=== PATIENT | female | born 1955 | race Caucasian/White ===

== ENCOUNTER → 2020-10-29 13:55 | Outpatient (CLI) | payer MEDICARE, SELFPAY ==
[2020-10-29 16:22] LABS: COVID19 -Nasal RAPID Negative (Negative)
== END ==
PROVIDERS: PCP Nurse Practitioner Family; Visit Provider Physical Medicine & Rehabilitation
DX: Z20.822 Contact with and (suspected) exposure to COVID-19 (principal)
CPT/HCPCS: 87635; C9803

== ENCOUNTER 2020-10-30 12:27 | Outpatient (CLI) | payer MEDICARE, SELFPAY ==
[2020-10-30] VITALS (8 sets, daily range): BP systolic 112–128; BP diastolic 64–81; PULSE 72–80; RESP 15–17; TEMP 36.9; O2SAT 97–100
--- NOTE | 2020-10-30 12:30 | DI.RAD.S_ITS ---
PROCEDURE: PAIN L/SI FACET INJ/BLK 1STL INDICATIONS: SPONDYLOSIS COMPARISON: [facility], CR, XR LUMBAR SPINE 2 OR 3 VIEWS, 01/11/2020, 11:10. FINDINGS: Fluoroscopic spot filming was performed to verify placement of spinal needles at the left L4-L5 and L5-S1 level(s), as labeled on the films. Appropriate location(s) of the needle tip(s) was confirmed by injection of iodinated contrast. IMPRESSION: Intraprocedural examination within normal limits. Dictated by: Cash Low M.D. on 10/30/2020 at 13:51 Approved by: Cash Low M.D. on 10/30/2020 at 13:51
[2020-10-30] MEDS: MIDAZOLAM 5 MG/5 ML VIAL IV (13:18)
[2020-10-30] MEDS: fentaNYL 100 MCG/2 ML INJ 50 MCG IV (13:18)
[2020-10-30] MEDS: BETAMETHASONE 30 MG/5 ML MDV 12 MG INJ (13:28)
[2020-10-30] MEDS: BUPIVACAINE 0.5% (PF) VIAL 2 ML INJ (13:28)
[2020-10-30] MEDS: IOPAMIDOL 15 ML VIAL 3 ML INJ (13:28)
--- NOTE | 2020-10-30 13:41 | P.PCN_ITS ---
Date/Time/Diagnoses Date of procedure: 10/30/20 Time of procedure: 13:41 Pre-procedure diagnosis: 1. FACET ARTHROPATHY, 2. AXIAL LBP, 3. MULTILEVEL DDD Post-procedure diagnosis: same Procedure Notes Procedure: 1. FLUOROSCOPICALLY GUIDED CONTRAST CONTROLLED FACET JOINT INJECTIONS LEFT L4/5, L5/S1 Indications: Nga is referred by BOBBY Penn for treatment of Axial LBP Physician: Art Beth Total Fluoroscopy time (seconds): 9 Total sedation minutes: 13 Complications: none Procedure in detail & Post-procedure care: FINDINGS Multilevel Facet Arthropathy with Clinically significant axial LBP DESCRIPTION OF PROCEDURE Fluoroscopically guided, contrast-controlled left L4/5, L5/S1 facet joint injections. Following review of allergy and review of potential side effects and complications, including, but not necessarily limited to, infection, allergic reaction, local tissue breakdown, stroke, temporary or permanent nerve injury, paralysis, and possible , the patient indicated that the patient understood and agreed to proceed. An informed consent document was signed by the patient, witnessed by a nurse, and placed in the patient's chart. Additionally, other treatment options including medications, modalities, and physical therapy were reviewed with the patient. After review of previous anaesthesic history and IV conscious sedation the patient was deemed safe to proceed with today?s procedure with IV conscious sedation as ASA class II designation. Safety time-out was performed to confirm patient ID, procedure to be performed and site of procedure. IV sedation was accomplished with a combination of 2mg of Versed and 50mcg of Fentanyl was administered by the RN after DO order, titrated to patient comfort during the course of the procedure while the patient remained responsive to all verbal commands. In the prone position, following sterile prep and drape of the lumbar region, the posterior aspect of the left L4/5, L5/S1 facet joints were identified fluoroscopically. The skin was anesthetized via a 25-gauge 1.5-inch needle with 1% lidocaine solution into the corresponding facet joints. At this point, a 22- gauge 3.5-inch spinal needle was atraumatically introduced and advanced under fluoroscopic guidance into the corresponding facet joints. Following negative aspiration, injections of approximately 0.2-cc of Isovue 200 confirmed i nterarticular placement without vascular uptake. Radiological data, including multiple fluoroscopic views of the lumbosacral spine, reveal a spinal needle at the left L4/5, L5/S1 facet joints. Subsequent views show flow of contrast material both superiorly and inferiorly within the joint space without vascular or intrathecal uptake. At this point, a total of 0.5 cc including a mixture of 0.25cc Marcaine and 0.25cc betamethasone was injected without complication into each of the corresponding facet joints. The procedure tolerated the procedure well without signs or symptoms of complic ations prior to transfer to the recovery area continued monitoring without incident. The patient was then transferred to the recovery area where they were observed for an appropriate period of time after the injection. The patient reported a VAS score of 7 prior to the procedure and a post-procedure VAS of 0. POST OP INSTRUCTIONS The patient was provided a Pain Log to continue to record their response to the target-specific procedure prior to follow-up visit with their referring physician. Additionally, specific post-injection care instructions and a contact number to our office were provided if concerns arise regarding possible complications associated with the procedure are suspected.
== END 2020-10-30 13:50 | disposition home or self-care (01) ==
LOC: RAD 12:30
PROVIDERS: PCP Nurse Practitioner Family; Referring Provider Physical Medicine & Rehabilitation; Visit Provider Physical Medicine & Rehabilitation
DX: M47.816 Spondylosis without myelopathy or radiculopathy, lumbar region (principal); M47.817 Spondylosis without myelopathy or radiculopathy, lumbosacral region; M54.5 Low back pain
CPT/HCPCS: 64493; 64494; 99152; J0702; J2250; J3010

== ENCOUNTER → 2020-11-26 13:42 | Outpatient (CLI) | payer MEDICARE, SELFPAY ==
[2020-11-26 17:58] LABS: COVID19 -Nasal RAPID Negative (Negative)
== END ==
PROVIDERS: PCP Nurse Practitioner Family; Visit Provider Physical Medicine & Rehabilitation
DX: Z01.812 Encounter for preprocedural laboratory examination (principal); Z20.822 Contact with and (suspected) exposure to COVID-19
CPT/HCPCS: 87635; C9803

== ENCOUNTER 2020-11-27 12:25 | Outpatient (CLI) | payer MEDICARE, SELFPAY ==
--- NOTE | 2020-11-27 12:27 | DI.RAD.S_ITS ---
PROCEDURE: PAIN SI JOINT INJECTION INDICATIONS: Sacroiliac joint dysfunction COMPARISON: [facility], CR, XR LUMBAR SPINE 2 OR 3 VIEWS, 01/11/2020, 11:10. [facility], CR, XR HIP 2 VIEWS LEFT, 01/10/2020, 13:54. FINDINGS: Fluoroscopic spot filming was performed to verify placement of spinal needles at the left SI joint level(s), as labeled on the films. Appropriate location(s) of the needle tip(s) was confirmed by injection of iodinated contrast. IMPRESSION: Fluoroscopy for SI joint injection. Dictated by: Patricia Brannon M.D. on 11/27/2020 at 13:40 Approved by: Patricia Brannon M.D. on 11/27/2020 at 13:45
[2020-11-27 12:50] VITALS: BP 107/77; PULSE 80; RESP 17; TEMP 35.9; O2SAT 97
[2020-11-27 13:15] VITALS: BP 118/72; PULSE 82; RESP 16; O2SAT 99
[2020-11-27] MEDS: fentaNYL 100 MCG/2 ML INJ 50 MCG IV (13:15)
[2020-11-27] MEDS: MIDAZOLAM 5 MG/5 ML VIAL IV (13:15)
[2020-11-27] MEDS: BETAMETHASONE 30 MG/5 ML MDV 12 MG INJ (13:17)
[2020-11-27] MEDS: BUPIVACAINE 0.5% (PF) VIAL 2 ML INJ (13:17)
[2020-11-27] MEDS: IOPAMIDOL 15 ML VIAL 3 ML INJ (13:17)
[2020-11-27 13:20] VITALS: BP 107/63; PULSE 79; RESP 16; O2SAT 93
--- NOTE | 2020-11-27 13:24 | PM.PROC.IR.1 ---
Date/Time/Diagnoses Date of procedure: 11/27/20 Time of procedure: 13:24 Pre-procedure diagnosis: Sacroiliac Joint Pain/DJD Post-procedure diagnosis: same Procedure Notes Procedure: Fluoroscopically guided contrast controlled left sacroiliac joint injection Indications: Nga is referred by BOBBY Penn for treatment of left sacroiliac joint DJD Physician: Art Beth Total Fluoroscopy time (seconds): 7 Total sedation minutes: 7 Complications: none Procedure in detail & Post-procedure care: DESCRIPTION OF PROCEDURE Fluoroscopic guided, contrast controlled left sacroiliac joint injection Following review of allergies and review of potential side effects and complications, including, but not necessarily limited to, infection, allergic reaction, local tissue breakdown, temporary as well as permanent nerve injury, paralysis, stroke and possible , the patient indicated that they understood and agreed to proceed. An informed consent was signed by the patient, witnessed by a nurse, and placed in the patient's chart. Additionally, other treatment options including modalities, medications, and physical therapy were reviewed with the patient. After review of previous anaesthesic history and IV conscious sedation the patient was deemed safe to proceed with today?s procedure with IV conscious sedation as ASA class II designation. Safety time-out was performed to confirm patient ID, procedure to be performed and site of procedure. IV sedation was accomplished with a combination of 2mg of Versed and 50mcg of Fentanyl administered by the RN after DO order, titrated to patient comfort during the course of the procedure while the patient remained responsive to all verbal commands. In the prone position following sterile prep and drape of the pelvic region, the hyper lucency on in the inferior aspect of the left sacroiliac joint was identified fluoroscopically the skin was anesthetized be a 25 gauge 1 eventual with approximately 2cc of 1% lidocaine solution. At this point, a 22 gauge 3inch spinal needle was atraumatically introduced and advanced under fluoroscopic guidance into the inferior aspect of the left sacroiliac joint. Following negative aspiration, approximately 0.3cc of Isovue-300 was injected confirming intra-articular placement without vascular uptake. Radiographic data, including multiple fluoroscopic views of the pelvis, reveals a spinal needle in the left sacroiliac joint hyper lucent zone. Subsequent view show flow contrast tear superiorly and inferiorly within the joint capsule without vascular intrathecal uptake. At this point a total of 1cc or 0.5% Marcaine was combined with 1cc of 6mg of betamethasone was injected without incident. The patient tolerated the procedure well without signs or symptoms of complications prior to transfer to the recovery area for further monitoring. The patient was then transferred to the recovery area with a bur observed for an appropriate time after the injection. The patient reverted a vas score of 7 prior to the procedure and postprocedure vas of 1. POSTOP INSTRUCTIONS The patient was provided with a pain like to continue to record the patient's response to the target specific procedure prior to the patient's follow-up visit with the referring physician. Additionally, specific post injection care instructions and a contact number to our office were provided if concerns arise regarding the possible complications associated with procedure are suspected.
[2020-11-27 13:30] VITALS: BP 112/62; PULSE 80; RESP 18; O2SAT 94
[2020-11-27 13:35] VITALS: BP 104/66; PULSE 79; RESP 18; O2SAT 93
[2020-11-27 13:40] VITALS: BP 110/68; PULSE 72; RESP 18; O2SAT 94
== END 2020-11-27 13:51 | disposition home or self-care (01) ==
LOC: RAD 12:27
PROVIDERS: PCP Nurse Practitioner Family; Referring Provider Physical Medicine & Rehabilitation; Visit Provider Physical Medicine & Rehabilitation
DX: M53.3 Sacrococcygeal disorders, not elsewhere classified (principal); M46.1 Sacroiliitis, not elsewhere classified
CPT/HCPCS: 27096; J0702; J2250; J3010

== ENCOUNTER → 2021-01-22 07:40 | Outpatient (CLI) | payer MEDICARE, SELFPAY ==
[2021-01-22 13:12] LABS: COVID19 -Nasal RAPID Negative (Negative)
== END ==
PROVIDERS: PCP Nurse Practitioner Family; Visit Provider Physical Medicine & Rehabilitation
DX: Z20.822 Contact with and (suspected) exposure to COVID-19 (principal)
CPT/HCPCS: 87635; C9803

== ENCOUNTER 2021-01-24 12:51 | Outpatient (CLI) | payer MEDICARE, SELFPAY ==
--- NOTE | 2021-01-24 12:54 | DI.RAD.S_ITS ---
PROCEDURE: PAIN L/SI FACET INJ/BLK 1STL INDICATIONS: SPONDYLOSIS COMPARISON: [facility], , PAIN L/SI FACET INJ/BLK 1STL, 10/30/2020, 13:27. FINDINGS: Fluoroscopic spot filming was performed to verify placement of spinal needles at the L4, L5, and S1 level(s), as labeled on the films. Appropriate location(s) of the needle tip(s) was confirmed by injection of iodinated contrast. IMPRESSION: Intraprocedural examination within normal limits. Dictated by: Cash Low M.D. on 01/24/2021 at 13:43 Approved by: Cash Low M.D. on 01/24/2021 at 13:43
[2021-01-24 13:10] VITALS: BP 111/74; PULSE 75; RESP 20; TEMP 36.7; O2SAT 97
[2021-01-24 13:50] VITALS: BP 112/67; PULSE 69; RESP 20; O2SAT 98
[2021-01-24] MEDS: MIDAZOLAM 5 MG/5 ML VIAL IV (13:50)
[2021-01-24] MEDS: BUPIVACAINE 0.5% (PF) VIAL 2 ML INJ (13:54)
[2021-01-24] MEDS: IOPAMIDOL 15 ML VIAL 3 ML INJ (13:55)
[2021-01-24 14:05] VITALS: BP 107/63; PULSE 74; RESP 17; O2SAT 97
[2021-01-24 14:10] VITALS: BP 104/69; PULSE 71; RESP 18; O2SAT 96
[2021-01-24 14:15] VITALS: BP 104/70; PULSE 73; RESP 18; O2SAT 95
[2021-01-24 14:20] VITALS: BP 102/65; PULSE 71; RESP 18; O2SAT 94
--- NOTE | 2021-02-04 08:51 | P.PCN_ITS ---
Date/Time/Diagnoses Date of procedure: 01/24/21 Time of procedure: 13:50 Pre-procedure diagnosis: 1. FACET ARTHROPATHY Post-procedure diagnosis: same Procedure Notes Procedure: 1. Left L4, L5 and S1 MB BLOCKS Indications: Nga is referred by BOBBY Penn for treatment of Left Axial LBP. Physician: Art Beth Total Fluoroscopy time (seconds): 8 Total sedation minutes: 12 Complications: none Procedure in detail & Post-procedure care: DESCRIPTION OF PROCEDURE Fluoroscopically guided, contrast-controlled left L4, L5 and S1 medial branch blocks with 0.5cc of 0.5% Marcaine. Following review of allergy and review of potential side effects and complications, including, but not necessarily limited to, infection, allergic reaction, local tissue breakdown, nerve injury, paralysis, stroke and possible , the patient indicated that the patient understood and agreed to proceed. An informed consent document was signed by the patient, witnessed by a nurse, and placed in the patient's chart. After review of previous anaesthesic history and IV conscious sedation the patient was deemed safe to proceed with today?s procedure with IV conscious sedation as ASA class II designation. Safety time-out was performed to confirm patient ID, procedure to be performed and site of procedure. IV sedation was accomplished with a combination of 2mg of Versed and 50mcg of Fentanyl was administered by the RN after DO order, titrated to patient comfort during the course of the procedure while the patient remained responsive to all verbal commands. In the prone position, following sterile prep and drape of the lumbar region, the left L4, L5 and S1 anatomical location of the medial branch of the dorsal ramus was identified fluoroscopically. Subsequently an anesthetic skin wheal using 1% lidocaine solution was initiated at each of the anatomical spots. Subsequently then a 22-gauge 3.5-inch spinal needle was atraumatically introduced and advanced under fluoroscopic guidance at each of the corresponding sites at the left L4, L5 and S1 MB. After negative aspiration, 0.2cc of Isovue 200 was injected, confirming placement without vascular or intrathecal uptake. Subsequently then 0.5cc of 0.5% Marcaine solution was injected at each of the corresponding sites at the left L4, L5 and S1 medial branch locations. The patient tolerated the procedure well without signs or symptoms of complications. The patient tolerated the procedure well without signs or symptoms of complications prior to transfer to the recovery area continued monitoring without incident. Post-procedure, the patient was monitored initiating provocative activities to measure the amount of relief from block of the facetogenic pain. The patient reported a VAS of 7 prior to the procedure and a post-procedure VAS of 1. It has been a pleasure to assist in the diagnostic and therapeutic care of your patient. POST OP INSTRUCTIONS The patient was provided with a Pain Log to complete over the next several hours and subsequent days prior to the patient's follow up with the ordering physician. If the patient has medical management specialist relief to the solution applied, then they may be a candidate for medial branch rhizotomy. The patient is aware, was provided, once again, with a Pain Log and will follow up with the referring physician for review and clinical correlation.
== END 2021-01-24 14:22 | disposition home or self-care (01) ==
PROVIDERS: PCP Nurse Practitioner Family; Referring Provider Physical Medicine & Rehabilitation; Visit Provider Physical Medicine & Rehabilitation
DX: M47.816 Spondylosis without myelopathy or radiculopathy, lumbar region (principal); M47.817 Spondylosis without myelopathy or radiculopathy, lumbosacral region
CPT/HCPCS: 64493; 64494; 99152; J2250; J3010

== ENCOUNTER 2021-04-30 10:34 | Outpatient (CLI) | payer MEDICARE, SELFPAY ==
[2021-04-30] VITALS (7 sets, daily range): BP systolic 105–123; BP diastolic 64–77; PULSE 78–82; RESP 12–20; TEMP 36.3; O2SAT 94–98
--- NOTE | 2021-04-30 10:36 | DI.RAD.S_ITS ---
PROCEDURE: PAIN L/S MED/LAT N RFA INDICATIONS: SPONDYLOSIS COMPARISON: [facility], XA, PAIN L/SI FACET INJ/BLK 1STL, 01/24/2021, 13:50. FINDINGS: Fluoroscopic spot filming was performed to verify placement of spinal needles at the L4, L5, and S1 level(s), as labeled on the films. IMPRESSION: Intraprocedural examination within normal limits. Dictated by: Cash Low M.D. on 04/30/2021 at 12:12 Approved by: Cash Low M.D. on 04/30/2021 at 12:12
[2021-04-30] MEDS: MIDAZOLAM 5 MG/5 ML VIAL IV (11:45)
[2021-04-30] MEDS: fentaNYL 100 MCG/2 ML INJ 50 MCG IV (11:45)
[2021-04-30] MEDS: BUPIVACAINE 0.5% (PF) VIAL 5 ML INJ (11:47)
[2021-04-30] MEDS: LIDOCAINE 1% 20 ML 10 ML INJ (11:48)
--- NOTE | 2021-04-30 12:10 | P.PCN_ITS ---
Date/Time/Diagnoses Date of procedure: 04/30/21 Time of procedure: 12:11 Pre-procedure diagnosis: 1. RECALCITRANT FACET ARTHROPATHY Post-procedure diagnosis: same Procedure Notes Procedure: 1. LEFT L4 AND L5 MEDIAL BRANCH RADIOFREQUENCY NEUROTOMY AND LEFT S1 DORSAL RAMUS RADIOFREQUENCY NEUROTOMY, Indications: Nga is referred by BOBBY Penn for treatment of facet arthropathy. Physician: Art Beth Total Fluoroscopy time (seconds): 13 Total sedation minutes: 17 Complications: none Procedure in detail & Post-procedure care: DESCRIPTION OF PROCEDURE Left L4 and L5 medial branch radiofrequency neurotomy and left S1 dorsal ramus branch radiofrequency neurotomy under fluoroscopy with conscious sedation. The patient is well known to this clinic having undergone previous facet injections with good but temporary relief. The patient has experienced appropriate, concordant relief with previous facet and median branch blocks but the patient's pain has been recalcitrant to further conservative measures. Therefore, based upon the patient's relief and persistent symptoms, the patient is considered an appropriate candidate for facet rhizotomy. All of the patient's questions regarding the risks versus benefits of the procedure, including, but not limited to, bleeding, infection, temporary as well as lasting nerve injury, paralysis, stroke, and , as well treatment alternatives were answered to satisfaction. After obtaining informed consent, denial of pertinent drug allergies, as well as being made aware of the potential risks of bleeding, infection, spinal cord trauma, paralysis, temporary and permanent nerve damage, seizure, stroke, and possible , the patient was brought to the fluoroscopy suite and positioned prone on the fluoroscopy table. The lumbar region was prepped with Betadine and covered with a fenestrated drape in the usual sterile fashion. Appropriate monitors applied including pulse oximeter, pulse, and blood pressure for regular monitoring throughout the procedure. IV sedation was accomplished with a combination of 2mg of Versed and 50mcg of Fentanyl titrated to patient comfort during the course of the procedure while the patient remained responsive to all verbal commands. After local infiltration using 1% lidocaine, under fluoroscopic guidance, a 10- cm RF insulated needle with a 10-mm active tip was positioned parallel to the junction of the left sacral ala and the superior articulating process where the S1 dorsal ramus resides. Needle placement was confirmed with sensory stimulation at 50 Hz, with motor stimulation of .5v on the left which produced local stimulation without radicular component. The stimulation was then increased to 2v with, once again, only local multifidus stimulation without radicular component. This was then followed by two discreet lesions performed at 80 degrees Celsius for 90 seconds each. The needle was then removed and the identical procedure was performed along the length of the left L5 medial branch with motor stimulation at .7v on the left. The identical procedure was once again performed along the length of the left L4 medial branch with motor stimulation of .5v on the left. The patient tolerated the procedure well without signs or symptoms of complications prior to transfer to the recovery area continued monitoring without incident. The patient was then transferred to the recovery area where they were observed for an appropriate period of time after the injection. The patient was then transferred to the recovery area where they were observed for an appropriate period of time after the injection. The patient reported a VAS score of 9 prior to the procedure and a post- procedure VAS of 0. POST OP INSTRUCTIONS The patient was provided a Pain Log to continue to record the patient's response to the target-specific procedure prior to the patient's follow-up visit with the referring physician. Additionally, specific post-injection care instructions and a contact number to our office were provided if concerns arise regarding possible complications associated with the procedure are suspected.
== END 2021-04-30 12:35 | disposition home or self-care (01) ==
LOC: RAD 10:35
PROVIDERS: PCP Nurse Practitioner Family; Referring Provider Physical Medicine & Rehabilitation; Visit Provider Physical Medicine & Rehabilitation
DX: M47.816 Spondylosis without myelopathy or radiculopathy, lumbar region (principal)
CPT/HCPCS: 64635; 64636; 99152; J2250; J3010

== ENCOUNTER → 2021-10-17 17:51 | Outpatient (CLI) | payer MEDICARE, SELFPAY | PROVIDERS: PCP Nurse Practitioner Family; Visit Provider Specialist | DX: Z87.898 Personal history of other specified conditions (principal) | CPT/HCPCS: 87086 ==

== ENCOUNTER → 2021-11-21 14:17 | Outpatient (CLI) | payer MEDICARE, SELFPAY ==
[2021-11-21 14:51] LABS: COVID19 -Nasal RAPID Negative (Negative)
== END ==
PROVIDERS: PCP Nurse Practitioner Family; Referring Provider Specialist; Visit Provider Specialist
DX: Z01.812 Encounter for preprocedural laboratory examination (principal); Z20.822 Contact with and (suspected) exposure to COVID-19
CPT/HCPCS: 87635

== ENCOUNTER 2021-11-22 08:36 | Day surgery (SDC) | payer MEDICARE, SELFPAY ==
[2021-11-20 15:09] VITALS: BMI 32.9
[2021-11-22] VITALS (21 sets, daily range): BP systolic 85–119; BP diastolic 49–75; PULSE 67–86; RESP 10–21; TEMP 36–36.8; O2SAT 91–100; BMI 32.9
--- NOTE | 2021-11-22 | PATH_ITS ---
[facility] Accession Number: [id number] . 01 Material submitted: . uterus - UTERUS AND CERVIX . 02 Diagnosis: Uterus and Cervix, Hysterectomy: Inactive endometrium with no diagnostic abnormality. Myometrium with no diagnostic abnormality. Cervix with no diagnostic abnormality. No evidence of neoplasm. [facility] 11/28/2021 1206 Local . 02 Electronically signed: . Vidal Simpson MD, PhD, Pathologist NPI- [id number] . 01 Gross description: . The specimen is received in formalin, with the designation uterus, cervix, and consists of a uterus (31.0 grams, 6.0 cm from fundus to cervix, 3.3 cm from cornu to cornu, and 2.2 cm from anterior to posterior). The serosal surfaces of the uterus are grossly unremarkable, opening the specimen reveals an endometrial cavity measuring 3.0 cm in length by 1.1 cm in width, with a moderate amount of pale yellow gelatinous contents. Lining the endometrial cavity is grossly unremarkable endometrium (0.2 cm average thickness), and sectioning demonstrates unremarkable myometrium (1.0 cm average thickness). The ectocervical mucosa is mostly pale miller and smooth with focal red-brown granulations, the external os (0.5 cm diameter) is slit-like and patent. No lesions or masses are identified grossly. The specimen is representatively submitted as follows: . A1: Anterior cervix, 12 o'clock. A2: [employer] section of anterior endomyometrium. A3: Posterior cervix, 6 o'clock. A4: Posterior endomyometrium. ([id number]) /MRV 11/27/2021 1345 Local . 02 Pathologist provided ICD-10: N81.4, R32 . 02 CPT . 027113 Specimen Comment: A courtesy copy of this report has been sent to [phone] Performed at: 01 [facility] [address] [place] [address], [place], [place] [id number] MD Diego Cm MD Phone: [phone] Performed at: 02 [facility] [place] [address] [place], [place] [id number] MD Corinna Griggs MD Phone: [phone]
--- NOTE | 2021-11-22 08:59 | PM.PREOP ---
Pre-operative Note COVID-19 COVID-19 status: Negative Result date/Date tested (Pos, Neg/Pending): 11/21/21 Criteria for continued procedure: Expected advancement of disease process Interval Note History & Physical reviewed/Exam performed by Physician: Yes Changes to H&P: No
[2021-11-22] MEDS: ACETAMINOPHEN 325 MG TABLET 975 MG PO (09:09)
[2021-11-22] MEDS: SCOPOLAMINE 1 PATCH TOP (09:10)
[2021-11-22] MEDS: LACTATED RINGERS 1,000 ML 42 ML IV ×2 (09:11→12:45)
[2021-11-22] MEDS: GABAPENTIN 300 MG CAPSULE PO (09:48)
[2021-11-22] MEDS: CEFAZOLIN 2 GM/20 ML SYRINGE IV (10:05)
--- NOTE | 2021-11-22 10:26 | SUR.OPER ---
Lithotomy on padded OR bed, head on pillow, arms secured on padded arm boards at <90 degrees abduction. Legs secured in padded yellow fins stirrups.
[2021-11-22] MEDS: BUPIVACAINE 0.5% (PF) 30 ML, EPINEPHrine 0.15 MG INJ (11:16)
--- NOTE | 2021-11-22 12:16 | PM.OP.1 ---
Operative Date/Time/Diagnoses Date of procedure: 11/22/21 Time of procedure: 12:16 Pre-op diagnosis: Mixed urinary incontinence with partial uterovaginal prolapse Post-op diagnosis: same Procedure & Clinicians Procedure: Total vaginal hysterectomy with anterior and posterior repair, bilateral sacrospinous ligament fixation, perineoplasty, TVT retropubic suburethral sling Same procedure as scheduled: Yes Indications: Mixed urinary incontinence with symptomatic uterovaginal prolapse Surgeon: Sheree Salguero Personal Injury Paralegal: Lacey Pickett Click Yes if Unassisted: No Anesthesia Type: General Operative Notes Findings: Small uterus normal appearing atrophic ovaries and tubes, cystocele, rectocele, uterovaginal prolapse and gaping introitus Closure Type: primary Specimen(s): other (Uterus) Applied: catheter (Odonnell), implant(s) (TVT exact suburethral sling) and other (Vaginal packing) Estimated Blood Loss (mL): 50 Blood products transfused: none Procedure in detail: Patient was brought to the operating room where she was placed in [facility] stirrups and prepped and draped in the usual sterile fashion. A check system was reviewed with staff in the room prior to the beginning of the case. Pulsatile stockings were in place and functional throughout the case. Warming was in place. 2 g of Ancef were in prior to beginning of the case. A Odonnell catheter was placed. A double-tooth tenaculum was placed on the cervix after injecting with 0.5% Marcaine with epinephrine. The cervix was circumscribed with a scalpel. The anterior incision was extended to allow a colpotomy incision and the bladder held away from the uterus. The posterior colpotomy incision was made. Weighted speculum was placed. Keeping the bladder held superiorly sequential bites were taken of the cardinal and broad ligaments. The rest of the attachments of the uterus including the utero-ovarian ligaments were clamped and ligated with 0 Vicryl suture x2. uterus was removed intact. The perineum was closed with a pursestring suture of 2-0 Vicryl. The cuff was closed with [id number] sutures of 0 Vicryl suture. Next a wedge shaped tissue was taken out of the posterior vaginal opening. The area over the rectocele was injected with a dilute solution of 1% lidocaine with epinephrine. An incision was made over the rectocele and enterocele with the scalpel. The dissection was undertaken laterally. Prolene suture with the Capio passer was placed through the uterosacral ligament on the right side and sutured to the underside of the vaginal cuff. Same procedure performed on the other side. 0 Vicryl suture was used to plicate over the rectocele. A finger was placed in the rectum to be sure there were no sutures placed through the rectal mucosa. The uterosacral sutures were tightened down and the vaginal incision was closed with 2-0 Vicryl suture. The perineal body was built up with interrupted 0 Vicryl sutures. A dilute solution of 1% lidocaine with 15 mL of half percent Marcaine with epinephrine were diluted with 70 mL of saline 10 cc was injected around the mid urethra. An incision was made over the mid urethra with a scalpel. The incision was extended laterally. A Odonnell catheter was placed with a catheter guide in place. The suprapubic exit sites were marked with a marking pen. The needles attached to the sling were placed from the bottom up and left in place. The catheter was removed and 300 mL of saline were placed in the bladder and cystoscopy was performed. A 70?? scope followed by a 0?? scope were used to look at the bladder and the urethra was no damage apparent with placement of the needles. Both ureters were seen to be functional. The graft was brought up loosely under the mid urethra. With sharp pressure against the bladder there was some leakage of urine. The plastic sheath was removed. The graft was cut under the skin of the suprapubic sites. Skin was closed with Steri-Strips. Plicating sutures were made over the cystocele with 2 0 Vicryl suture. A small amount of the vaginal excessive tissue was removed with scissors. The incision was closed with 2-0 Vicryl suture . Vaginal packing was placed with the Odonnell left in place. Patient went to recovery room in good condition. Counts of instruments and sponges were correct. Complications: none Post-operative Condition: stable Disposition: Acute Care Plan for aftercare: Vaginal packing and Odonnell catheter will be removed later today. Observation overnight with discharge in a.m. if stable
[2021-11-22] MEDS: HYDROMORPHONE 2 MG INJ IV ×3 (12:25→12:44)
[2021-11-22] MEDS: OXYCODONE IR 5 MG TABLET PO ×3 (12:44→23:13)
--- NOTE | 2021-11-22 12:55 | SUR.PHASEI ---
Received to PACU after general anesthesia. Airway patent, self maintained. Report from Josiah Hanley RN.
[2021-11-22] MEDS: LACTATED RINGERS 1,000 ML 100 ML IV (14:46)
[2021-11-22] MEDS: KETOROLAC 30 MG/ML VIAL IV ×2 (14:59→21:34)
[2021-11-22] MEDS: GABAPENTIN 600 MG TABLET PO ×2 (14:59→21:33)
--- NOTE | 2021-11-22 16:25 | PC.NURSE ---
Admit note: Patient admitted to room 217 from PACU, weaned off O2, sats 98% on RA. SCDs and IVF initiated on arrival. Tolerating sips of water, no nausea. Odonnell Catheter draining clear/yellow urine to gravity. Oriented to room, environment and plan of care. Call light within reach.
--- NOTE | 2021-11-22 18:33 | P.PN_ITS ---
Subjective Subjective Date Patient Seen: 11/22/21 Time Patient Seen: 18:33 Interval history: Patient complains of pain in her rectal area but not down her legs. She tolerated dinner, no nausea. Exam Vital Signs (past 8 hours): - 11/22/21 12:12 11/22/21 12:17 11/22/21 12:22 Temperature 96.8 F L Pulse Rate 75 72 74 Respiratory Rate 12 10 L 10 L Blood Pressure 90/56 L 85/59 L 106/61 Pulse Oximetry 93 95 98 11/22/21 12:27 11/22/21 12:42 11/22/21 12:57 Temperature 97.4 F L 97.1 F L 97.0 F L Pulse Rate 71 68 75 Respiratory Rate 10 L 12 10 L Blood Pressure 103/59 L 94/58 L 103/64 Pulse Oximetry 93 91 100 11/22/21 13:00 11/22/21 13:10 11/22/21 13:15 Temperature 97.6 F Pulse Rate 79 77 77 Respiratory Rate 12 12 12 Blood Pressure 108/66 102/67 108/65 Pulse Oximetry 99 99 100 11/22/21 13:30 11/22/21 13:45 11/22/21 14:00 Temperature 97.5 F L 97.4 F L Pulse Rate 80 78 82 Respiratory Rate 16 16 16 Blood Pressure 110/60 104/65 109/67 Pulse Oximetry 100 100 100 11/22/21 14:10 11/22/21 14:40 11/22/21 15:10 Temperature 96.8 F L 97.7 F 97.3 F L Pulse Rate 81 78 67 Respiratory Rate 20 21 20 Blood Pressure 92/62 102/64 97/61 Pulse Oximetry 94 98 11/22/21 16:10 11/22/21 16:18 11/22/21 17:10 Temperature 97.2 F L 97.6 F Pulse Rate 86 74 86 Respiratory Rate 17 16 Blood Pressure 89/49 L 112/70 115/66 Pulse Oximetry 96 97 11/22/21 18:10 Temperature 98.0 F Pulse Rate 86 Respiratory Rate 16 Blood Pressure 108/72 Pulse Oximetry 98 Oxygen Delivery Method Nasal Cannula Oxygen Flow Rate 2 Narrative Exam Narrative: Vaginal packing and Odonnell catheter removed. Abdomen is soft, nontender [facility] Medical History (Updated 10/16/21 @ 20:41 by Kristal Vernon) Cervical spine disease Chronic back pain Facet arthropathy, lumbar Frequent UTI (~08/17/20) Herniated nucleus pulposus, L2-3 left Herniated nucleus pulposus, L5-S1, left Herpes (~1974) History of urinary incontinence (~08/17/20) Hypertension (~2017) Osteoarthritis (~2018) Osteopenia Sacroiliac joint dysfunction Scoliosis Surgical History (Updated 11/22/21 @ 12:13 by Sheree Salguero MD) Anesthesia History of surgery (~2020) No pertinent past surgical history Family History (Updated 10/16/21 @ 20:42 by Kristal Vernon) Father Cancer Mother Hypertension Sister Breast cancer Social History household members: none Smoking Status: Former smoker Assessment & Plan Post-op Postoperative Procedures: Procedures Operation Date: 11/22/21 09:45 Actual Procedure Side Surgeon p Total Vaginal Hysterectomy Not Applicable Sheree Salguero MD s Anterior/Posterior Repair, sacrospinous ligament fixation, TVT exact suburethral sling Sheree Salguero MD Postoperative day: 0 Postoperative plan: routine post-op care Postoperative plan narrative: Patient will be evaluated for postvoid residual. Home in a.m. when stable. Time Spent With Patient Time with patient: less than 15 minutes
[2021-11-22] MEDS: ATORVASTATIN 20 MG TABLET 10 MG PO (21:33)
[2021-11-22] MEDS: DOCUSATE 100 MG CAPSULE 200 MG PO (21:35)
[2021-11-23] MEDS: LACTATED RINGERS 1,000 ML 100 ML IV (01:22)
[2021-11-23 04:00] VITALS: BP 113/52; PULSE 62; RESP 16; TEMP 36.8; O2SAT 95
[2021-11-23] MEDS: KETOROLAC 30 MG/ML VIAL IV ×2 (04:04→08:38)
[2021-11-23 06:05] LABS: Add Manual Diff / Slide Review NO; Basophils Absolute Auto 0 /uL (0-100); Basophils Percent Auto 0.1 % (0-2); Eosinophils Absolute Auto 0 /uL (0-450); Hematocrit 31.1 % (36-46); Hemoglobin 10.5 g/dL (12.0-16.0); Lymphocytes Absolute Auto 1300 /uL (1100-4500); Lymphocytes Percent Auto 9.4 % (25-40); Mean Corpuscular HGB Conc 33.9 % (30-36); Mean Corpuscular Hemoglobin 30.3 PG (26-34); Mean Corpuscular Volume 89.4 fL (80-100); Monocytes Absolute Auto 1000 /uL (0-900); Monocytes Percent Auto 7.3 % (3-14); Neutrophils Absolute Auto 11400 /uL (1500-7000); Neutrophils Percent Auto 83.2 % (50-75); Platelet Count 259 X10^3/uL (150-400); Red Blood Cell Count 3.48 X10^6/uL (4.0-5.2); White Blood Cell Count 13.7 X10^3/uL (4.5-11.0)
[2021-11-23 07:00] VITALS: BP 103/64; PULSE 64; RESP 20; TEMP 36.1; O2SAT 99
[2021-11-23] MEDS: OXYCODONE IR 5 MG TABLET PO (07:09)
[2021-11-23] MEDS: GABAPENTIN 600 MG TABLET PO (08:39)
[2021-11-23] MEDS: PANTOPRAZOLE DR 20 MG TABLET PO (08:39)
[2021-11-23] MEDS: DOCUSATE 100 MG CAPSULE 200 MG PO (08:39)
--- NOTE | 2021-11-23 08:53 | P.DS_ITS ---
History of Present Illness History of Present Illness Date Patient Seen: 11/23/21 Time Patient Seen: 08:54 Chief complaint: OPB Narrative: Patient is postoperative Discharge Providers Provider Discharge Date: 11/23/21 Primary care physician: BOBBY Peters Discharge provider: Sheree Salguero MD Summary Hospital Course Discharge Diagnosis: Mixed urinary incontinence, symptomatic uterovaginal prolapse with gaping vaginal introitus Hospital Course: Patient underwent a total vaginal hysterectomy, anterior-posterior repair, sacr ospinous ligament fixation, TVT exact suburethral sling, perineoplasty on 11/22/2021. The patient passed her bladder trial. She denies nausea. Pain is present but tolerable. She is passing gas. Status at Discharge Cognitive/behavioral status at discharge: oriented Functional status at discharge: independent ambulation Overall status at discharge: patient is progressing back to baseline Time Spent with Patient Time spent: Less than 30 minutes Exam Vital Signs (past 8 hours): - 11/23/21 04:00 11/23/21 07:00 Temperature 98.3 F 96.9 F L Pulse Rate 62 64 Respiratory Rate 16 20 Blood Pressure 113/52 L 103/64 Pulse Oximetry 95 99 Oxygen Delivery Method Nasal Cannula Oxygen Flow Rate 2 Narrative Exam Narrative: Abdomen is soft, nontender. Mild vaginal bleeeding. Incisions are intact. Extremities without edema and non tender. Objective Labs Result Diagrams: 11/23/21 05:20 Labs: Laboratory Results - last 24 hr 11/23/21 05:20 WBC 13.7 H RBC 3.48 L Hgb 10.5 L Hct 31.1 L MCV 89.4 MCH 30.3 MCHC 33.9 RDW 13.0 Plt Count 259 Neut % (Auto) 83.2 H Lymph % (Auto) 9.4 L [place] % (Auto) 7.3 Eos % (Auto) 0.0 L Baso % (Auto) 0.1 Neut # (Auto) 73453 H Lymph # (Auto) 1300 [place] # (Auto) 1000 H Eos # (Auto) 0 Baso # (Auto) 0 PFSH Medical History (Updated 10/16/21 @ 20:41 by Kristal Vernon) Cervical spine disease Chronic back pain Facet arthropathy, lumbar Frequent UTI (~08/17/20) Herniated nucleus pulposus, L2-3 left Herniated nucleus pulposus, L5-S1, left Herpes (~1974) History of urinary incontinence (~08/17/20) Hypertension (~2017) Osteoarthritis (~2018) Osteopenia Sacroiliac joint dysfunction Scoliosis Surgical History (Updated 11/22/21 @ 12:13 by Sheree Salguero MD) Anesthesia History of surgery (~2020) No pertinent past surgical history Family History (Updated 10/16/21 @ 20:42 by Kristal Vernon) Father Cancer Mother Hypertension Sister Breast cancer Social History household members: none Smoking Status: Former smoker Discharge Assessment & Plan Assessment and Plan Assessment: Post operative TVH, anterior and posterior repair, sacrospinous ligament fixation, perineoplasty, TVT exact retrobubic suburethral sling doing well. Plan of Treatment: Home. Precautions reviewed. Call for heavy bleeding, increasing pain, inability to urinate, fever /chills. Discharge Plan Discharge Plan Patient Disposition: Home Nursing Discharge Comment: Scopalamine patch applied behind right ear Thursday at 0910. You may leave this on for up to 72 hours for nausea control. Wash hands immedicately after removing it. Discharge orders & Medications Discharge Orders: Discharge (Order); Ordered 11/23/21 Ordered By: Sheree Salguero Prescriptions: Continued gabapentin 600 mg tablet 600 mg PO QID Qty: 360 1RF Rx Instructions: TAKE 4 DAILY. USE ACCORDING TO PAIN CONTROL diclofenac sodium 75 mg tablet,delayed release (DR/EC) 75 mg PO BID Qty: 60 2RF oxycodone 5 mg tablet 5 mg PO Q4H PRN (Reason: pain) Qty: 30 0RF Label Comments: For post-op; hasn't taken yet simvastatin 20 mg tablet 20 mg PO BEDTIME 0RF losartan 100 mg tablet 100 mg PO DAILY 0RF hydrochlorothiazide 25 mg tablet 25 mg PO DAILY 0RF acetaminophen [Tylenol Extra Strength] 500 mg tablet 1,000 mg PO Q6H PRN (Reason: Pain) 0RF omeprazole 20 mg capsule,delayed release(DR/EC) 20 mg PO DAILY 0RF Follow up/Referrals: Sheree Salguero MD [Physician] - As previously scheduled (Already scheduled on 12/05/2021 at 11:45 a.m.) Arelis Penn ARNP [Primary Care Provider] - Diet/Activity/Treatments Diet: Regular Activity: Nothing in vagina or lifting over 10 lb for 6 weeks Skin/Wound/Dressing Care Report to your healthcare provider any signs of infection, such as:: chills, fever and increased pain Dressing: steri strips at suprapubic site can get wet just pat dry. If have not fallen off in 1 week can get wet rub off Visit Report/Discharge Packet Instructions: DI for Hysterectomy Stand Alone Forms: Surgery Discharge Discharge Data Primary Care Provider: Arelis Penn Attending Provider: Sheree Salguero
--- NOTE | 2021-11-23 14:19 | CM.IDA ---
Initial DCP Assessment Note Pt is a 66 yo female, resident of [place], now POD#1 from total vaginal hysterectomy, anterior-posterior repair, sacrospinous ligament fixation, TVT exact suburethral sling, perineoplasty on 11/22/[address] Salguero PCP: BOBBY Peters Payer: Stephanie TOVAR Reviewed chart, pt discussed in multidisciplinary rounds this morning. pt has planned for home w/family to assist, DC order from Dr Salguero has already been initiated this morning. No needs identified by this OPTICAL DESIGN ENGINEER No needs expected from DC planning team although will remain available in case this changes today. JIMMY Hassan
== END 2021-11-23 10:54 | disposition home or self-care (01) ==
LOC: OR 08:39 → AC 08:42
PROVIDERS: PCP Nurse Practitioner Family; Referring Provider Specialist; Visit Provider Specialist
PROC: (CPT 58260; principal; 2021-11-22 09:45)
PROC: (CPT 58260; 2021-11-22 09:45)
DX: N81.2 Incomplete uterovaginal prolapse (principal); N39.46 Mixed incontinence; E66.9 Obesity, unspecified; I10 Essential (primary) hypertension; K21.9 Gastro-esophageal reflux disease without esophagitis
CPT/HCPCS: 58260; 57288; 57240; C1771; 36415; 85025; J0171; J0690; J1100; J1170; J1885; J2250; J2405; J2704

== ENCOUNTER → 2023-04-06 15:00 | Outpatient (CLI) | payer MEDICARE, SELFPAY ==
[2023-02-16 12:05] VITALS: BMI 32.9
[2023-04-06 15:38] LABS: Blood Urea Nitrogen 19 mg/dL (7-17); Calcium 9.1 mg/dL (8.4-10.2); Carbon Dioxide 25 mmol/L (22-32); Chloride 104 mmol/L (98-107); Estimated Glomerular Filt Rate 43 mL/min (>60); Glucose 93 mg/dL (80-110); HEMOLYSIS < 15 (0-50); Potassium 4.1 mmol/L (3.4-5.1); Sodium 138 mmol/L (137-145)
== END ==
PROVIDERS: PCP Internal Medicine; Referring Provider Internal Medicine; Visit Provider Internal Medicine
DX: E83.42 Hypomagnesemia (principal); I10 Essential (primary) hypertension
CPT/HCPCS: 36415; 80048; 83735

== ENCOUNTER → 2023-05-15 15:39 | Outpatient (CLI) | payer MEDICARE, SELFPAY ==
[2023-05-12 09:11] VITALS: BMI 32.9
[2023-05-15 15:51] LABS: Add Manual Diff / Slide Review NO; Basophils Absolute Auto 100 /uL (0-100); Basophils Percent Auto 1.1 % (0-2); Eosinophils Absolute Auto 300 /uL (0-450); Eosinophils Percent Auto 3.4 % (2-4); Hematocrit 37.6 % (36-46); Hemoglobin 12.9 g/dL (12.0-16.0); Lymphocytes Absolute Auto 1900 /uL (1100-4500); Lymphocytes Percent Auto 24.1 % (25-40); Mean Corpuscular HGB Conc 34.3 % (30-36); Mean Corpuscular Hemoglobin 29.3 PG (26-34); Mean Corpuscular Volume 85.5 fL (80-100); Monocytes Absolute Auto 600 /uL (0-900); Monocytes Percent Auto 7.4 % (3-14); Neutrophils Absolute Auto 5000 /uL (1500-7000); Platelet Count 267 X10^3/uL (150-400); Red Blood Cell Count 4.39 X10^6/uL (4.0-5.2); White Blood Cell Count 7.8 X10^3/uL (4.5-11.0)
[2023-05-15 16:25] LABS: Erythrocyte Sedimentation Rate 11 MM/HR (0-20)
[2023-05-15 17:37] LABS: Alanine Aminotransferase 35 IU/L (<35); Albumin 3.9 g/dL (3.5-5.0); Albumin Globulin Ratio 1.1 (1.0-2.8); Alkaline Phosphatase 74 U/L (38-126); Amylase 84 U/L (30-110); Aspartate Aminotransferase 28 IU/L (14-36); BUN Creatinine Ratio 12.4 (6-22); Bilirubin Total 0.2 mg/dL (0.2-1.3); Blood Urea Nitrogen 16 mg/dL (7-17); Calcium 9.6 mg/dL (8.4-10.2); Carbon Dioxide 26 mmol/L (22-32); Chloride 102 mmol/L (98-107); Estimated Glomerular Filt Rate 45 mL/min (>60); Globulin 3.6 g/dL (1.7-4.1); Glucose 98 mg/dL (80-110); HEMOLYSIS < 15 (0-50); Lipase 227 U/L (23-300); Potassium 4.4 mmol/L (3.4-5.1); Sodium 137 mmol/L (137-145); Total Protein 7.5 g/dL (6.3-8.2)
[2023-05-15 19:38] LABS: C-Reactive Protein Quant < 0.5 mg/dL (<1.0)
== END ==
PROVIDERS: PCP Internal Medicine; Referring Provider Internal Medicine; Visit Provider Internal Medicine
DX: R10.9 Unspecified abdominal pain (principal); R19.7 Diarrhea, unspecified
CPT/HCPCS: 36415; 80053; 82150; 83690; 85025; 85651; 86140

== ENCOUNTER → 2023-12-24 15:15 | Outpatient (CLI) | payer MEDICARE, SELFPAY ==
[2023-05-12 09:11] VITALS: BMI 32.9
[2023-12-24 16:37] LABS: Alanine Aminotransferase 27 IU/L (<35); Albumin 4.6 g/dL (3.5-5.0); Albumin Globulin Ratio 1.4 (1.0-2.8); Alkaline Phosphatase 92 U/L (38-126); Aspartate Aminotransferase 27 IU/L (14-36); BUN Creatinine Ratio 10.4 (6-22); Bilirubin Total 0.4 mg/dL (0.2-1.3); Blood Urea Nitrogen 17 mg/dL (7-17); Calcium 9.4 mg/dL (8.4-10.2); Carbon Dioxide 25 mmol/L (22-32); Chloride 104 mmol/L (98-107); Estimated Glomerular Filt Rate 34 mL/min (>60); Globulin 3.2 g/dL (1.7-4.1); Glucose 85 mg/dL (80-110); HEMOLYSIS < 15 (0-50); Lipase 235 U/L (23-300); Potassium 4.1 mmol/L (3.4-5.1); Sodium 137 mmol/L (137-145); Total Protein 7.8 g/dL (6.3-8.2)
[2023-12-24 17:01] LABS: TSH w/ Reflex to FT4 3.31 uIU/mL (0.47-4.68)
== END ==
PROVIDERS: PCP Internal Medicine; Referring Provider Internal Medicine; Visit Provider Internal Medicine
DX: R10.9 Unspecified abdominal pain (principal); I10 Essential (primary) hypertension; R19.7 Diarrhea, unspecified
CPT/HCPCS: 80053; 83690; 84443